=== PATIENT | female | born 1955 | race Caucasian/White ===

== ENCOUNTER 2016-12-25 11:03 | Outpatient (CLI) | payer OTHER ==
--- NOTE | 2016-12-25 13:14 | MMO ---
BILATERAL SCREENING MAMMOGRAM: DATE: 12/25/16 HISTORY: 60-year-old female for screening mammography. COMPARISON: 12/13/15, 12/08/14, 11/23/13. FINDINGS: Bilateral MLO and CC views of the breasts show scattered fibroglandular breast tissue. There is no e vidence of suspicious mass, suspicious cluster of microcalcifications, or area of architectural dist ortion. Interpretation of this mammogram was performed with the assistance of computer-aided detection. IMPRESSION: BIRADS 1: Negative Annual screening mammography is recommended. POS: [facility]
== END 2016-12-25 11:04 | disposition home or self-care (01) ==
LOC: SCSMAMMO 11:03
PROVIDERS: ATTEND Internal Medicine
DX: Z12.31 Encounter for screening mammogram for malignant neoplasm of breast (principal)
CPT/HCPCS: 77067; G0202

== ENCOUNTER 2018-01-08 13:14 | Outpatient (CLI) | payer OTHER ==
--- NOTE | 2018-01-08 16:15 | MMO ---
BILATERAL SCREENING MAMMOGRAMS: Date: 01/08/18 Comparison made to prior exams from 2016 and 2016. This patient's mammogram was interpreted with the assistance of computer-aided detection. FINDINGS: Predominant fatty replacement. No evidence of mass, distortion, or suspicious calcification. No inter komal change seen. Recommend one year follow-up. IMPRESSION: BIRADS 1: Negative POS: [facility]
== END 2018-01-08 13:15 | disposition home or self-care (01) ==
LOC: SCSMAMMO 13:14
PROVIDERS: ATTEND Student in an Organized Health Care Education/Training Program
DX: Z12.31 Encounter for screening mammogram for malignant neoplasm of breast (principal)
CPT/HCPCS: 77067